=== PATIENT | male | born 1940 | race Hispanic/Latino ===

== ENCOUNTER 2017-04-05 11:15 | Inpatient (IN) | payer MEDICARE ==
[2017-04-05] MEDS ORDERED: NACL 0.9% 500 ML 500 ML IV SCH (12:00)
[2017-04-05 12:07] LABS: Basophils # (Auto) 0.1 K/mm3 (0.0-0.1); Basophils % (Auto) 0.8 % (0.0-1.8); Eosinophils # (Auto) 0.1 K/mm3 (0.0-0.4); Eosinophils % (Auto) 1.6 % (0.0-4.3); Hematocrit 38.1 % (35.5-45.6); Lymphocytes # (Auto) 1.4 K/mm3 (1.2-5.4); Lymphocytes % (Auto) 18.5 % (13.4-35.0); Mean Corpuscular HGB Conc 34 % (32-34); Mean Corpuscular Hemoglobin 32 pg (28-32); Mean Corpuscular Volume 93 fl (84-94); Monocytes # (Auto) 0.6 K/mm3 (0.0-0.8); Monocytes % (Auto) 7.8 % (0.0-7.3); Platelet Count 357 K/mm3 (140-440); Red Cell Distribution Width 14.6 % (13.2-15.2)
[2017-04-05 12:19] LABS: INR 1.1 (0.87-1.13); Partial Thromboplastin Time 36.2 Sec. (24.2-36.6)
[2017-04-05 12:25] LABS: BUN/Creatinine Ratio 24; Blood Urea Nitrogen 17 mg/dL (9-20); Calcium 8.9 mg/dL (8.4-10.2); Hemolysis Index 8
[2017-04-05] MEDS ORDERED: HEPARIN/NS 5000 UNIT/500ML(CATH LAB) 500 ML IR ONE (15:39)
[2017-04-05] MEDS ORDERED: VERSED ONE (15:39)
[2017-04-05] MEDS ORDERED: SUBLIMAZE ONE (15:39)
[2017-04-05] MEDS ORDERED: ANCEF/STERILE WATER 2 GM/20 ML 2 GM/20 ML SYRINGE IV ONE (15:40)
[2017-04-05] MEDS ORDERED: XYLOCAINE 2% INFILTRATI ONE (15:40)
[2017-04-05] MEDS ORDERED: ZOFRAN IV PRN ×2 (15:50→16:56)
[2017-04-05] MEDS ORDERED: DULCOLAX PR PRN ×2 (15:50→16:56)
[2017-04-05] MEDS ORDERED: TYLENOL PO PRN ×2 (15:50→16:56)
[2017-04-05] MEDS ORDERED: MILK OF MAGNESIA PO PRN ×2 (15:50→16:56)
[2017-04-05] MEDS ORDERED: PERCOCET 5/325 PO PRN (15:51)
--- NOTE | 2017-04-05 15:56 | History and Physical Report ---
History of Present Illness Date of examination: 04/05/17 Date of admission: 04/05/17 14:27 Chief complaint: CC Recurrent DVT's Infected Knee joint S/pIVC filter History of present illness: NOOKSACK: 76 y/o male being admitted as a direct admit for Septic Knee Joint(Infected Prosthetic) - for wash out/TKA tomorrow by Dr Gauthier.Patient has recurrent DVT 's for which he had IVC filter placed today by Dr Nguyen.Post IVC filter patient doing well.No fever chills etc.No Sob .No chest pain etc.Patient on Lifelong anticoagulation with Xarelto for time being. Past History Past Medical History: DVT (Recurrent), hyperlipidemia, other Past Surgical History: total knee replacement Social history: no significant social history, full code Family history: hypertension Medications and Allergies Allergies Allergy/AdvReac Type Severity Reaction Status Date / Time No Known Allergies Allergy Verified 04/04/17 16:39 Home Medications Medication Instructions Recorded Confirmed Last Taken Type Acetaminophen [Tylenol Arthritis] 1,000 mg PO DAILY 04/04/17 04/05/17 04/04/17 History Fenofibrate Nanocrystallized 160 mg PO DAILY 04/04/17 04/05/17 04/04/17 History [Fenofibrate] Glucosam/Ab-Msm1/C/[place]aughn/Bosw 1 each PO BID 04/04/17 04/05/17 04/04/17 History [Osteo Bi-Flex Caplet] HYDROcodone/APAP 5-325 [[place] 1 each PO Q6HR PRN 04/04/17 04/05/17 04/04/17 History 5/325] Rivaroxaban [Xarelto] 10 mg PO QDAY 04/04/17 04/05/17 04/03/17 History Sulfamethoxazole/Trimethoprim 1 each PO BID 04/04/17 04/05/17 04/04/17 History [Bactrim 400-80 mg Tablet] Tamsulosin [Flomax] 0.4 mg PO QDAY 04/04/17 04/05/17 04/04/17 History hydrOXYzine PAMOATE [Vistaril] 25 mg PO QHS 04/04/17 04/05/17 04/04/17 History traZODone [Desyrel] 50 mg PO QHS 04/04/17 04/05/17 04/04/17 History Active Meds: Active Medications Sodium Chloride (Nacl 0.9% 500 Ml) 500 mls @ 50 mls/hr IV DIRECT SALE[place] Review of Systems Constitutional: no weight loss, no weight gain, no fever, no chills, no sweats, no night sweats Ears, nose, mouth and throat: no dysphagia, no hoarseness, no sore throat, no swelling in mouth Cardiovascular: no chest pain, no orthopnea, no palpitations, no rapid/ irregular heart beat, no edema, no syncope, no lightheadedness, no shortness of breath Respiratory: no cough, no cough with sputum, no excessive sputum, no hemoptysis , no shortness of breath, no dyspnea on exertion Gastrointestinal: no abdominal pain, no nausea, no vomiting, no diarrhea, no constipation, no change in bowel habits, no hematemesis, no coffee ground emesis Genitourinary Male: no dysuria, no hematuria, no flank pain, no discharge, no urinary frequency, no urinary hesitancy, no nocturia, no incontinence, no erectile dysfunction, no genital pain Rectal: no pain Musculoskeletal: no neck stiffness, no neck pain, no shooting arm pain, no arm numbness/tingling, no low back pain Integumentary: no rash, no pruritis, no redness, no sores, no wounds, no jaundice Neurological: no seizures, no syncope Psychiatric: no anxiety, no memory loss, no change in sleep habits, no sleep disturbances, no insomnia Endocrine: no cold intolerance, no heat intolerance, no polyphagia Hematologic/Lymphatic: no easy bruising, no easy bleeding Allergic/Immunologic: no urticaria, no allergic rhinitis, no wheezing Exam - Constitutional Vitals: Temp Pulse Resp BP Pulse Ox 98.0 F 90 20 124/73 96 04/05/17 11:58 04/05/17 11:58 04/05/17 11:58 04/05/17 11:58 04/05/17 11:58 General appearance: Present: no acute distress, well-nourished - EENT Eyes: Present: PERRL ENT: hearing intact, clear oral mucosa - Neck Neck: Present: supple, normal ROM - Respiratory Respiratory effort: normal Respiratory: bilateral: CTA - Cardiovascular Heart Sounds: Present: S1 & S2. Absent: rub, click - Extremities Extremities: pulses symmetrical, No edema Peripheral Pulses: within normal limits - Abdominal General gastrointestinal: Present: soft, non-tender, non-distended, normal bowel sounds Male genitourinary: Present: normal - Integumentary Integumentary: Present: clear, warm, dry - Musculoskeletal Musculoskeletal: gait normal, strength equal bilaterally - Psychiatric Psychiatric: appropriate mood/affect, intact judgment & insight - Neurologic Neurologic: CNII-XII intact, moves all extremities Results - Labs CBC & Chem 7: 04/05/17 11:57 04/05/17 11:57 Labs: Laboratory Last Values WBC 7.3 K/mm3 (4.5-11.0) 04/05/17 11:57 RBC 4.10 M/mm3 (3.65-5.03) 04/05/17 11:57 Hgb 13.0 gm/dl (11.8-15.2) 04/05/17 11:57 Hct 38.1 % (35.5-45.6) 04/05/17 11:57 MCV 93 fl (84-94) 04/05/17 11:57 MCH 32 pg (28-32) 04/05/17 11:57 MCHC 34 % (32-34) 04/05/17 11:57 RDW 14.6 % (13.2-15.2) 04/05/17 11:57 Plt Count 357 K/mm3 (140-440) 04/05/17 11:57 Lymph % (Auto) 18.5 % (13.4-35.0) 04/05/17 11:57 [place] % (Auto) 7.8 % (0.0-7.3) H 04/05/17 11:57 Eos % (Auto) 1.6 % (0.0-4.3) 04/05/17 11:57 Baso % (Auto) 0.8 % (0.0-1.8) 04/05/17 11:57 Lymph # 1.4 K/mm3 (1.2-5.4) 04/05/17 11:57 [place] # 0.6 K/mm3 (0.0-0.8) 04/05/17 11:57 Eos # 0.1 K/mm3 (0.0-0.4) 04/05/17 11:57 Baso # 0.1 K/mm3 (0.0-0.1) 04/05/17 11:57 Seg Neutrophils % 71.3 % (40.0-70.0) H 04/05/17 11:57 Seg Neutrophils # 5.2 K/mm3 (1.8-7.7) 04/05/17 11:57 PT 14.8 Sec. (12.2-14.9) 04/05/17 11:57 INR 1.10 (0.87-1.13) 04/05/17 11:57 APTT 36.2 Sec. (24.2-36.6) 04/05/17 11:57 Sodium 137 mmol/L (137-145) 04/05/17 11:57 Potassium 4.5 mmol/L (3.6-5.0) 04/05/17 11:57 Chloride 99.5 mmol/L (98-107) 04/05/17 11:57 Carbon Dioxide 23 mmol/L (22-30) 04/05/17 11:57 Anion Gap 19 mmol/L 04/05/17 11:57 BUN 17 mg/dL (9-20) 04/05/17 11:57 Creatinine 0.7 mg/dL (0.8-1.5) L 04/05/17 11:57 Estimated GFR > 60 ml/min 04/05/17 11:57 BUN/Creatinine Ratio 24 % 04/05/17 11:57 Glucose 100 mg/dL (75-100) 04/05/17 11:57 Calcium 8.9 mg/dL (8.4-10.2) 04/05/17 11:57 Assessment and Plan Advance Directives: Yes (Full code) VTE prophylaxis?: Chemical Plan of care discussed with patient/family: Yes - Patient Problems (1) Septic arthritis Current Visit: Yes Status: Acute Qualifiers: Septic arthritis location: knee Laterality: unspecified laterality Plan to address problem: Iv Vancomycin and IV Unasyn initiated (2) HLD (hyperlipidemia) Current Visit: Yes Status: Chronic Qualifiers: Hyperlipidemia type: mixed hyperlipidemia Qualified Code(s): E78.2 - Mixed hyperlipidemia Plan to address problem: Cont Fenofibrate (3) Anticoagulant long-term use Current Visit: Yes Status: Chronic Plan to address problem: On Xareltio which we will hold till 3 days post surgery (4) BPH (benign prostatic hyperplasia) Current Visit: Yes Status: Chronic Qualifiers: Lower urinary tract symptom presence: symptoms present Lower urinary tract symptom detail: urinary hesitancy Qualified Code(s): N40.1 - Benign prostatic hyperplasia with lower urinary tract symptoms; R39.11 - Hesitancy of micturition ; R39.11 - Hesitancy of micturition Plan to address problem: Cont Tamsulosin (5) DVT, lower extremity, recurrent Current Visit: Yes Status: Chronic Qualifiers: Laterality: bilateral Qualified Code(s): I82.403 - Acute embolism and thrombosis of unspecified deep veins of lower extremity, bilateral Plan to address problem: Had IVC filter (6) DVT prophylaxis Current Visit: Yes Status: Acute Plan to address problem: Only SCD's for now.Resume Xarelto after Discharge.Patient has IVC filter now
[2017-04-05] MEDS ORDERED: NACL 0.45% 1000 ML 1,000 ML IV SCH (16:00)
--- NOTE | 2017-04-05 16:29 | Operative Report ---
Operative Report Operative Report: Operative note: Date: 04/05/2017 Preoperative diagnosis: Right leg DVT Postoperative diagnosis: Same. Operation: Ultrasound-guided access of right common femoral vein Venogram Placement of IVC filter Surgeon: Denita Nguyen. Asst.: None Anesthesia: Moderate sedation EBL: None Findings: Patent IVC without evidence of clot Indications: A 76-year-old gentleman with multiple previous DVTs and recent in the right lower extremity diagnosed in February came for IVC filter placement in preparation for infected knee surgery. Patient would be off anticoagulation which may seem at risk of propagation of DVT and PE. Patient was explained all risks, benefits and alternatives of placement of IVC filter. Patient chose to proceed and signed informed consent. Operative details: Patient was brought to the labor/excavator and placed in supine position. His right groin was prepped and draped in sterile fashion. Timeout was performed. Right common femoral vein was accessed under continuous ultrasound with micropuncture needle and that was exchanged to micropuncture sheath over micropuncture wire. Bentson wire was inserted and advanced into proximal IVC. Access sheath from [place] femoral IVC filter was inserted and positioned at second lumbar vertebra. Introducer was removed and venogram was performed visualizing location of renal veins. They were at top of L1. IVC filter was placed with the tip just below renal veins. Postprocedure venogram showed excellent positioning of IVC filter. Sheath was removed and pressure applied. Sterile dressing was placed. Patient tolerated the procedure well and was transferred to recovery room in stable condition.
[2017-04-05] MEDS ORDERED: AMBIEN PO PRN (16:56)
[2017-04-05] MEDS ORDERED: VANCOMYCIN PHARMACY TO DOSE IV SCH (17:00)
[2017-04-05] MEDS ORDERED: VANCOMYCIN 1,750 MG in NACL 0.9% 500 ML 500 ML IV ONE (18:00)
[2017-04-05 19:13] LABS: Basophils # (Auto) 0.1 K/mm3 (0.0-0.1); Basophils % (Auto) 0.8 % (0.0-1.8); Eosinophils # (Auto) 0.1 K/mm3 (0.0-0.4); Eosinophils % (Auto) 1.7 % (0.0-4.3); Hemoglobin 12.6 gm/dl (11.8-15.2); Lymphocytes # (Auto) 1.4 K/mm3 (1.2-5.4); Lymphocytes % (Auto) 23.3 % (13.4-35.0); Mean Corpuscular HGB Conc 34 % (32-34); Mean Corpuscular Hemoglobin 32 pg (28-32); Mean Corpuscular Volume 95 fl (84-94); Monocytes # (Auto) 0.5 K/mm3 (0.0-0.8); Monocytes % (Auto) 8.7 % (0.0-7.3); Platelet Count 340 K/mm3 (140-440); Red Blood Count 3.91 M/mm3 (3.65-5.03); Red Cell Distribution Width 14.3 % (13.2-15.2)
[2017-04-05 19:38] LABS: Alanine Aminotransferase 7 units/L (7-56); Albumin 3.5 g/dL (3.9-5); BUN/Creatinine Ratio 23; Blood Urea Nitrogen 16 mg/dL (9-20); Hemolysis Index 0
[2017-04-05] MEDS: PEPCID PO SCH (21:14)
[2017-04-05] MEDS: UNASYN/NS 3 GM/100 ML 3 GM/100 ML BAG IV SCH (21:14)
[2017-04-06] MEDS: MORPHINE IV PRN ×4 (01:39→22:02)
[2017-04-06] MEDS: UNASYN/NS 3 GM/100 ML 3 GM/100 ML BAG IV SCH ×4 (04:29→20:15)
[2017-04-06 04:58] LABS: Basophils % (Auto) 0.6 % (0.0-1.8); Eosinophils # (Auto) 0.1 K/mm3 (0.0-0.4); Eosinophils % (Auto) 1.8 % (0.0-4.3); Hematocrit 37.3 % (35.5-45.6); Lymphocytes # (Auto) 1.3 K/mm3 (1.2-5.4); Mean Corpuscular HGB Conc 32 % (32-34); Mean Corpuscular Hemoglobin 30 pg (28-32); Mean Corpuscular Volume 94 fl (84-94); Monocytes # (Auto) 0.7 K/mm3 (0.0-0.8); Monocytes % (Auto) 9.3 % (0.0-7.3); Platelet Count 344 K/mm3 (140-440); Red Blood Count 3.96 M/mm3 (3.65-5.03); Red Cell Distribution Width 14.5 % (13.2-15.2)
[2017-04-06 05:09] LABS: BUN/Creatinine Ratio 23; Blood Urea Nitrogen 16 mg/dL (9-20); Calcium 8.4 mg/dL (8.4-10.2); Hemolysis Index 9
[2017-04-06] MEDS: VANCOMYCIN 1,250 MG in NACL 0.9% 250ML 250 ML IV SCH ×2 (05:19→17:15)
--- NOTE | 2017-04-06 07:47 | Progress Note ---
Assessment and Plan Assessment and plan: Patient is a 76 y/o male being admitted as a direct admit for Septic Knee Joint( Infected Prosthetic) - for wash out/TKA today by Dr Gauthier.Patient has recurrent DVT's Requring placement of IVC filter on admission by Dr Nguyen. Post IVC filter patient doing well. No fever chills etc. No Sob. No chest pain etc. Patient on Lifelong anticoagulation with Xarelto for time being. (1) Suspected Septic arthritis * Status post IV washout today * Continue IV abx with Vancomycin and IV Unasyn * consult ID for abx choice and duration * Follow cultures as they become available (2) HLD (hyperlipidemia) * Cont Fenofibrate (3) Anticoagulant long-term use * On Xareltio which we will hold till 3 days post surgery * Now S/P IVC filter placement (4) BPH (benign prostatic hyperplasia) * Cont Tamsulosin (5) DVT, lower extremity, recurrent * Had IVC filter (6) DVT prophylaxis * Only SCD's for now.Resume Xarelto after Discharge.Patient has IVC filter now Plan of care discussed with the patient in detail History Interval history: Patient seen and examined in no acute distress resting comfortably post procedure. Pain appears to be controlled. Denies any nausea vomiting or diarrhea. Hospitalist Physical - Physical exam Narrative exam: VITAL SIGNS: Reviewed. GENERAL: The patient appeared well nourished and normally developed. Vital signs as documented. HEAD: No signs of head trauma. EYES: Pupils are equal. Extraocular motions intact. EARS: Hearing grossly intact. MOUTH: Oropharynx is normal. NECK: No adenopathy, no JVD. CHEST: Chest with clear breath sounds bilaterally. No wheezes, rales, or rhonchi. CARDIAC: Regular rate and rhythm. S1 and S2, without murmurs, gallops, or rubs. VASCULAR: No Edema. Peripheral pulses normal and equal in all extremities. ABDOMEN: Soft, without detectable tenderness. No sign of distention. No rebound or guarding, and no masses palpated. Bowel Sounds normal. MUSCULOSKELETAL: Good range of motion of all major joints. Except right lower extremity with knee immobilizer in place. Wound is not visualized by me. Extremities without clubbing, cyanosis or edema. NEUROLOGIC EXAM: Alert and oriented x 3. No focal sensory or strength deficits. Speech normal. Follows commands. PSYCHIATRIC: Mood normal. SKIN: No rash or lesions. - Constitutional Vitals: Temp Pulse Resp BP Pulse Ox 97.7 F 87 20 117/65 95 04/06/17 03:51 04/06/17 03:51 04/06/17 03:51 04/06/17 03:51 04/06/17 03:51 General appearance: Present: no acute distress, well-nourished Results - Labs CBC & Chem 7: 04/07/17 04:12 04/07/17 04:12 Labs: Laboratory Last Values WBC 7.0 K/mm3 (4.5-11.0) 04/06/17 04:26 RBC 3.96 M/mm3 (3.65-5.03) 04/06/17 04:26 Hgb 12.0 gm/dl (11.8-15.2) 04/06/17 04:26 Hct 37.3 % (35.5-45.6) 04/06/17 04:26 MCV 94 fl (84-94) 04/06/17 04:26 MCH 30 pg (28-32) 04/06/17 04:26 MCHC 32 % (32-34) 04/06/17 04:26 RDW 14.5 % (13.2-15.2) 04/06/17 04:26 Plt Count 344 K/mm3 (140-440) 04/06/17 04:26 Lymph % (Auto) 18.0 % (13.4-35.0) 04/06/17 04:26 [place] % (Auto) 9.3 % (0.0-7.3) H 04/06/17 04:26 Eos % (Auto) 1.8 % (0.0-4.3) 04/06/17 04:26 Baso % (Auto) 0.6 % (0.0-1.8) 04/06/17 04:26 Lymph # 1.3 K/mm3 (1.2-5.4) 04/06/17 04:26 [place] # 0.7 K/mm3 (0.0-0.8) 04/06/17 04:26 Eos # 0.1 K/mm3 (0.0-0.4) 04/06/17 04:26 Baso # 0.0 K/mm3 (0.0-0.1) 04/06/17 04:26 Seg Neutrophils % 70.3 % (40.0-70.0) H 04/06/17 04:26 Seg Neutrophils # 4.9 K/mm3 (1.8-7.7) 04/06/17 04:26 PT 14.8 Sec. (12.2-14.9) 04/05/17 11:57 INR 1.10 (0.87-1.13) 04/05/17 11:57 APTT 36.2 Sec. (24.2-36.6) 04/05/17 11:57 Sodium 136 mmol/L (137-145) L 04/06/17 04:26 Potassium 4.2 mmol/L (3.6-5.0) 04/06/17 04:26 Chloride 98.8 mmol/L (98-107) 04/06/17 04:26 Carbon Dioxide 25 mmol/L (22-30) 04/06/17 04:26 Anion Gap 16 mmol/L 04/06/17 04:26 BUN 16 mg/dL (9-20) 04/06/17 04:26 Creatinine 0.7 mg/dL (0.8-1.5) L 04/06/17 04:26 Estimated GFR > 60 ml/min 04/06/17 04:26 BUN/Creatinine Ratio 23 % 04/06/17 04:26 Glucose 85 mg/dL (75-100) 04/06/17 04:26 POC Glucose 78 (70-105) 04/06/17 05:49 Hemoglobin A1c 5.6 % (4-6) 04/05/17 18:28 Calcium 8.4 mg/dL (8.4-10.2) 04/06/17 04:26 Total Bilirubin 0.40 mg/dL (0.1-1.2) 04/05/17 18:28 AST 11 units/L (5-40) 04/05/17 18:28 ALT 7 units/L (7-56) 04/05/17 18:28 Alkaline Phosphatase 49 units/L (35-129) 04/05/17 18:28 Total Protein 6.6 g/dL (6.3-8.2) 04/05/17 18:28 Albumin 3.5 g/dL (3.9-5) L 04/05/17 18:28 Albumin/Globulin Ratio 1.1 % 04/05/17 18:28
[2017-04-06] MEDS ORDERED: NACL 0.9% 500 ML 500 ML IV SCH (09:00)
[2017-04-06] MEDS ORDERED: ANCEF/STERILE WATER 2 GM/20 ML IV NR (09:00)
--- NOTE | 2017-04-06 09:05 | Anesthesia Day of Surgery ---
Anesthesia Day of Surgery - Day of Surgery Patient Examined: Yes Patient H&P Reviewed: Yes Patient is NPO: Yes
--- NOTE | 2017-04-06 09:06 | Anesthesia Consultation ---
Anesthesia Consult and Med Hx Date of service: 04/06/17 - Airway Anesthetic Teeth Evaluation: Dentures (upper) ROM Head & Neck: Adequate Mental/Hyoid Distance: Adequate Mallampati Class: Class II Intubation Access Assessment: Probably Good - Pulmonary Exam CTA: Yes - Cardiac Exam Cardiac Exam: RRR - Pre-Operative Health Status ASA Pre-Surgery Classification: ASA2 Proposed Anesthetic Plan: General - Pulmonary Hx Smoking: No Hx Asthma: No COPD: No Hx Pneumonia: No Hx Sleep Apnea: No (MANJIT PRE SCREEN LOW RISK) - Cardiovascular System Hx Hypertension: No - Central Nervous System Hx Psychiatric Problems: No - Endocrine Hx End Stage Renal Disease: No - Hematic Hx Anemia: No - Other Systems Hx Cancer: No - Additional Comments Anesthesia Medical History Comments: h/o DVT
[2017-04-06] MEDS ORDERED: NACL 0.9% 1000 ML 1,000 ML ONE (09:17)
[2017-04-06] MEDS ORDERED: MARCAINE 0.25% INFILTRATI ONE (10:16)
[2017-04-06] MEDS ORDERED: POLYMYXIN B SULFATE IV ONE ×2 (10:16→11:45)
[2017-04-06] MEDS ORDERED: TORADOL ONE (10:16)
[2017-04-06] MEDS ORDERED: BACITRACIN ONE (10:17)
[2017-04-06] MEDS ORDERED: MORPHINE ONE (10:17)
[2017-04-06] MEDS ORDERED: NACL 0.9% 0 ML ONE (10:19)
[2017-04-06] MEDS: PEPCID PO SCH ×2 (11:19→22:02)
[2017-04-06] MEDS ORDERED: NACL 0.9% IV ONE (11:45)
[2017-04-06] MEDS ORDERED: BACITRACIN IR ONE (11:45)
[2017-04-06] MEDS ORDERED: NACL 0.9% IR ONE ×2 (11:45)
--- NOTE | 2017-04-06 12:43 | Progress Note ---
Subjective Date of service: 04/06/17 Interval history: patient had TKA 9 years ago approx and recently had a GI surgery after which he had increase pain and swelling in the knee. Knee aspirate has grown Streptococcus Agalacte bug which is sensitive to vanop, linezolid, levoflaxacin. and ampicillin. ID consulted. continue medical management consulted Vascular team given his history of DVT Objective Vital signs: Vital Signs - 12hr 04/06/17 04/06/17 04/06/17 01:39 03:51 09:24 Temperature 97.7 F 98.7 F Pulse Rate 87 83 Respiratory 18 20 18 Rate Blood Pressure 117/65 119/85 O2 Sat by Pulse 95 99 Oximetry 04/06/17 09:27 Temperature 98.7 F Pulse Rate 83 Respiratory 18 Rate Blood Pressure 119/85 O2 Sat by Pulse 99 Oximetry - Labs CBC & BMP: 04/06/17 04:26 04/06/17 04:26 Labs: Abnormal lab results 04/05/17 04/05/17 04/06/17 Range/Units 18:28 18:28 04:26 MCV 95 H (84-94) fl [place] % (Auto) 8.7 H 9.3 H (0.0-7.3) % Seg Neutrophils % 70.3 H (40.0-70.0) % Sodium (137-145) mmol/L Potassium 5.1 H (3.6-5.0) mmol/L Creatinine 0.7 L (0.8-1.5) mg/dL C-Reactive Protein (0.00-1.30) mg/dL Albumin 3.5 L (3.9-5) g/dL 04/06/17 04/06/17 Range/Units 04:26 04:26 MCV (84-94) fl [place] % (Auto) (0.0-7.3) % Seg Neutrophils % (40.0-70.0) % Sodium 136 L (137-145) mmol/L Potassium (3.6-5.0) mmol/L Creatinine 0.7 L (0.8-1.5) mg/dL C-Reactive Protein 2.60 H (0.00-1.30) mg/dL Albumin (3.9-5) g/dL
[2017-04-06] MEDS ORDERED: MILK OF MAGNESIA PO PRN (12:44)
[2017-04-06] MEDS ORDERED: PHENERGAN PR PRN (12:44)
[2017-04-06] MEDS ORDERED: ZOFRAN IV PRN (12:44)
[2017-04-06] MEDS ORDERED: SODIUM CHLORIDE FLUSH SYRINGE 10 ML IV NR (13:00)
[2017-04-06] MEDS ORDERED: DILAUDID ONE (13:18)
--- NOTE | 2017-04-06 14:01 | Post Anesthesia Evaluation ---
- Post Anesthesia Evaluation Patient Participated: Yes Airway Patent: Yes Stable Respiratory Function: Yes Temp > 96.8F: Yes Pain Manageable: Yes Adequeate Hydration: Yes Anesthesia Complications: No
--- NOTE | 2017-04-06 14:22 | Consultation ---
History of Present Illness - Reason for Consult Consult date: 04/06/17 TKR infection Requesting physician: PATI PATTON - History of Present Illness 76 years old male with history of DVT (Recurrent), hyperlipidemia and right total knee replacement in 2008; direct admitted on for right TKR infection. Patient reports he has had chronic knee pain and edema which became worse last couple of months after he had cholecystectomy in Feb 2017. Patient was evaluated by ortho and knee aspirate has grown Streptococcus agalactiae. Patient underwent IVC filter placement yesterday and just came out of the OR for right total knee polyethylene exchange. Denies any recent trauma, fever, chills, N/V/D. Upon admission, initial temperature was 98, heart rate 90, respiration 20, blood pressure 124/73. Initial white count 7.8. Hemoglobin 13. Creatinine 0.7. Microbiology: Knee aspiration: Streptococcus agalactiae Current Antimicrobials: unasyn vanco Previous Antimicrobials: Past History Past Medical History: DVT (Recurrent), hyperlipidemia, other Past Surgical History: total knee replacement Social history: no significant social history, full code Family history: hypertension Medications and Allergies Allergies Allergy/AdvReac Type Severity Reaction Status Date / Time No Known Allergies Allergy Verified 04/04/17 16:39 Home Medications Medication Instructions Recorded Confirmed Last Taken Type Acetaminophen [Tylenol Arthritis] 1,000 mg PO DAILY 04/04/17 04/05/17 04/04/17 History Fenofibrate Nanocrystallized 160 mg PO DAILY 04/04/17 04/05/17 04/04/17 History [Fenofibrate] Glucosam/Ab-Msm1/C/[place]/Bosw 1 each PO BID 04/04/17 04/05/17 04/04/17 History [Osteo Bi-Flex Caplet] HYDROcodone/APAP 5-325 [[employer] 1 each PO Q6HR PRN 04/04/17 04/05/17 04/04/17 History 5/325] Rivaroxaban [Xarelto] 10 mg PO QDAY 04/04/17 04/05/17 04/03/17 History Sulfamethoxazole/Trimethoprim 1 each PO BID 04/04/17 04/05/17 04/04/17 History [Bactrim 400-80 mg Tablet] Tamsulosin [Flomax] 0.4 mg PO QDAY 04/04/17 04/05/17 04/04/17 History hydrOXYzine PAMOATE [Vistaril] 25 mg PO QHS 04/04/17 04/05/17 04/04/17 History traZODone [Desyrel] 50 mg PO QHS 04/04/17 04/05/17 04/04/17 History Active Meds: Active Medications Acetaminophen (Tylenol) 650 mg PO Q4H PRN PRN Reason: Pain MILD(1-3)/Fever >100.5/RILEY Apixaban (Eliquis) 5 mg PO Q12HR [place] PRN Reason: Protocol Bisacodyl (Dulcolax) 10 mg [place] QDAY PRN PRN Reason: Constipation unrelieved by MOM Cefazolin Sodium (Ancef/Sterile Water 2 Gm/20 Ml) 2 gm IV PREOP NR Stop: 04/06/17 21:00 Famotidine (Pepcid) 20 mg PO BID [facility] Last Admin: 04/06/17 11:19 Dose: Not Given Ampicillin Sodium/Sulbactam Sodium (Unasyn/Ns 3 Gm/100 Ml) 3 gm in 100 mls @ 100 mls/hr IV Q6H [facility]1983 PRN Reason: Protocol Last Admin: 04/06/17 11:18 Dose: Not Given Vancomycin HCl 1,250 mg/ (Sodium Chloride) 262.5 mls @ 166.667 mls/hr IV Q12H [facility] Last Admin: 04/06/17 05:19 Dose: 166.667 mls/hr Sodium Chloride (Nacl 0.9% 500 Ml) 500 mls @ 50 mls/hr IV DIRECT [place] Magnesium Hydroxide (Milk Of Magnesia) 30 ml PO Q4H PRN PRN Reason: Constipation Magnesium Hydroxide (Milk Of Magnesia) 30 ml PO Q4H PRN PRN Reason: Constipation Morphine Sulfate (Morphine) 2 mg IV Q4H PRN PRN Reason: Pain, Moderate (4-6) Last Admin: 04/06/17 01:39 Dose: 2 mg Morphine Sulfate (Morphine) 4 mg IV Q4H PRN PRN Reason: Pain , Severe (7-10) Morphine Sulfate (Morphine) 2 mg IV Q10MIN PRN PRN Reason: Pain, Moderate (4-6) Ondansetron HCl (Zofran) 4 mg IV Q8H PRN PRN Reason: N/V unrelieved by Hermelinda Ondansetron HCl (Zofran) 4 mg IV Q8H PRN PRN Reason: Nausea And Vomiting Oxycodone/Acetaminophen (Percocet 5/325) 1 tab PO Q6H PRN PRN Reason: Pain, Moderate (4-6) Promethazine HCl (Phenergan) 25 mg [place] Q6H PRN PRN Reason: Nausea And Vomiting Sodium Chloride (Sodium Chloride Flush Syringe 10 Ml) 10 ml IV PRN NR Stop: 04/08/17 12:59 Vancomycin HCl (Vancomycin Pharmacy To Dose) 1 each IV PKCONSULT SALE[place] PRN Reason: Protocol Zolpidem Tartrate (Ambien) 5 mg PO QHS PRN PRN Reason: Insomnia Review of Systems All systems: negative (as per HPI rest neg) Physical Examination - Physical Exam Narrative exam: General appearance: Alert in NAD, conversant Eyes: anicteric sclerae, moist conjunctivae; no lid-lag; PERRLA HENT: Atraumatic; oropharynx clear Neck: Trachea midline; supple, no thyromegaly or lymphadenopathy Lungs: CTA CV: RRR Abdomen: Soft, non-tender Extremities: right knee with surgical dressings Skin: Normal temperature, turgor and texture; no rash, ulcers or subcutaneous nodules Psych: Appropriate affect, alert and oriented to person, place and time. Neuro: alert and oriented x 3. Moving all extermities Lines: No CVL / PICC - Constitutional Vitals: Vital Signs Temp Pulse Resp BP Pulse Ox 98.7 F 83 18 119/85 99 04/06/17 09:27 04/06/17 09:27 04/06/17 09:27 04/06/17 09:27 04/06/17 09:27 Temperature -Last 24 Hours Temperature 98.7 F Temperature 98.7 F Temperature 97.7 F Temperature 98.2 F Temperature 98.5 F Temperature 98.0 F Results - Labs CBC & Chem 7: 04/06/17 04:26 04/06/17 04:26 Labs: Abnormal lab results 04/05/17 04/05/17 04/06/17 Range/Units 18:28 18:28 04:26 MCV 95 H (84-94) fl [place] % (Auto) 8.7 H 9.3 H (0.0-7.3) % Seg Neutrophils % 70.3 H (40.0-70.0) % Sodium (137-145) mmol/L Potassium 5.1 H (3.6-5.0) mmol/L Creatinine 0.7 L (0.8-1.5) mg/dL C-Reactive Protein (0.00-1.30) mg/dL Albumin 3.5 L (3.9-5) g/dL 04/06/17 04/06/17 Range/Units 04:26 04:26 MCV (84-94) fl [place] % (Auto) (0.0-7.3) % Seg Neutrophils % (40.0-70.0) % Sodium 136 L (137-145) mmol/L Potassium (3.6-5.0) mmol/L Creatinine 0.7 L (0.8-1.5) mg/dL C-Reactive Protein 2.60 H (0.00-1.30) mg/dL Albumin (3.9-5) g/dL Assessment and Plan Assessment: 1) Right total knee replacement infection: -Initial right total knee replacement in 2008 -knee aspirate has grown Streptococcus agalactiae. -S/P right total knee polyethylene exchange on 04/06. 2)History of DVT (Recurrent) Plan: -follow-up OR cultures -stop vancomycin and unasyn -place a PICC line -start ceftriaxone -upon discharge will do ceftriaxone 2 g IV q day total 6 weeks from 04/06/17 until 05/17/17 -check CRP I will be off until Apr 12, but available over the phone, please call me for questions. Thank you Dr Patton for your consultation, will follow up with you. Agnes Evans MD Infectious Diseases Specialist [facility] M [phone] O [phone]
[2017-04-06 15:23] LABS: Total Cells Counted 100 /mm3
[2017-04-06] MEDS: ELIQUIS PO SCH (22:02)
[2017-04-07 04:42] LABS: Hematocrit 34.3 % (35.5-45.6); Hemoglobin 11.7 gm/dl (11.8-15.2)
[2017-04-07 04:54] LABS: INR 1.16 (0.87-1.13)
[2017-04-07 05:00] LABS: BUN/Creatinine Ratio 20; Blood Urea Nitrogen 12 mg/dL (9-20); Calcium 7.9 mg/dL (8.4-10.2); Hemolysis Index 8
[2017-04-07] MEDS: UNASYN/NS 3 GM/100 ML 3 GM/100 ML BAG IV SCH ×3 (05:37→15:15)
[2017-04-07] MEDS: VANCOMYCIN 1,250 MG in NACL 0.9% 250ML 250 ML IV SCH ×2 (05:38→17:20)
[2017-04-07] MEDS: MORPHINE IV PRN (05:43)
[2017-04-07] MEDS ORDERED: NORCO 5/325 PO PRN (09:16)
--- NOTE | 2017-04-07 09:26 | XRay Report ---
AP CHEST: HISTORY: Right arm PICC placement AP view of the chest demonstrates a normal mediastinal and cardiac contour with clear lungs and normal bony and soft tissue structures. The right arm PICC appears to terminate in the lower SVC. IMPRESSION: Adequate right arm PICC placement. No acute process in the chest.
[2017-04-07] MEDS: ELIQUIS PO SCH ×2 (10:11→23:14)
[2017-04-07] MEDS: FLOMAX PO SCH (10:13)
[2017-04-07] MEDS: PEPCID PO SCH ×2 (10:13→23:14)
[2017-04-07] MEDS: TRICOR PO SCH (10:32)
--- NOTE | 2017-04-07 13:17 | Progress Note ---
Subjective Date of service: 04/07/17 Interval history: patient doin well, no complaints dressing dry calf soft NT id and vascular team on board pain under control Objective Vital signs: Vital Signs - 12hr 04/07/17 04/07/17 04/07/17 03:55 04:21 07:24 Temperature 98.9 F 98.1 F Pulse Rate 93 H 92 H Respiratory 20 18 Rate Blood Pressure 134/73 135/75 O2 Sat by Pulse 97 95 Oximetry - Labs CBC & BMP: 04/07/17 04:12 04/07/17 04:12 Labs: Abnormal lab results 04/06/17 04/07/17 04/07/17 Range/Units 15:39 04:12 04:12 Hgb 11.7 L (11.8-15.2) gm/dl Hct 34.3 L (35.5-45.6) % PT 15.4 H (12.2-14.9) Sec. INR 1.16 H (0.87-1.13) Sodium (137-145) mmol/L Chloride (98-107) mmol/L Creatinine (0.8-1.5) mg/dL Glucose (75-100) mg/dL Calcium (8.4-10.2) mg/dL C-Reactive Protein 3.20 H (0.00-1.30) mg/dL 04/07/17 04/07/17 Range/Units 04:12 04:12 Hgb (11.8-15.2) gm/dl Hct (35.5-45.6) % PT (12.2-14.9) Sec. INR (0.87-1.13) Sodium 135 L (137-145) mmol/L Chloride 97.6 L (98-107) mmol/L Creatinine 0.6 L (0.8-1.5) mg/dL Glucose 131 H (75-100) mg/dL Calcium 7.9 L (8.4-10.2) mg/dL C-Reactive Protein 5.50 H (0.00-1.30) mg/dL
--- NOTE | 2017-04-07 13:45 | Progress Note ---
Assessment and Plan Assessment and plan: Patient is a 76 y/o male being admitted as a direct admit for Septic Knee Joint( Infected Prosthetic) - for wash out/TKA today by Dr Gauthier.Patient has recurrent DVT's Requring placement of IVC filter on admission by Dr Nguyen. Post IVC filter patient doing well. No fever chills etc. No Sob. No chest pain etc. Patient on Lifelong anticoagulation with Xarelto for time being. (1) Suspected Septic arthritis * Status post IV washout today * Vancomycin and Zosyn discontinued patient will be treated with ceftriaxone for 6 weeks. Client has been placed. * Follow cultures as they become available * Initial total knee replacement was done in 2008. The aspirate had grown Streptococcus agalactiae (2) HLD (hyperlipidemia) * Cont Fenofibrate (3) Anticoagulant long-term use * On Xareltio which we will hold till 3 days post surgery * Now S/P IVC filter placement (4) BPH (benign prostatic hyperplasia) * Cont Tamsulosin (5) DVT, lower extremity, recurrent * Had IVC filter (6) anemia Aspect that. We'll monitor no evidence of overt bleeding. (7) DVT prophylaxis * Only SCD's for now.Resume Xarelto after Discharge.Patient has IVC filter now * Plan of care discussed with the patient in detail History Interval history: Patient seen and examined in no acute distress resting comfortably post procedure. Denies any nausea vomiting or diarrhea. Hospitalist Physical - Physical exam Narrative exam: VITAL SIGNS: Reviewed. GENERAL: The patient appeared well nourished and normally developed. Vital signs as documented. HEAD: No signs of head trauma. EYES: Pupils are equal. Extraocular motions intact. EARS: Hearing grossly intact. MOUTH: Oropharynx is normal. NECK: No adenopathy, no JVD. CHEST: Chest with clear breath sounds bilaterally. No wheezes, rales, or rhonchi. CARDIAC: Regular rate and rhythm. S1 and S2, without murmurs, gallops, or rubs. VASCULAR: No Edema. Peripheral pulses normal and equal in all extremities. ABDOMEN: Soft, without detectable tenderness. No sign of distention. No rebound or guarding, and no masses palpated. Bowel Sounds normal. MUSCULOSKELETAL: Good range of motion of all major joints. Except right lower extremity with knee immobilizer in place. Wound is not visualized by me. Extremities without clubbing, cyanosis or edema. NEUROLOGIC EXAM: Alert and oriented x 3. No focal sensory or strength deficits. Speech normal. Follows commands. PSYCHIATRIC: Mood normal. SKIN: No rash or lesions. - Constitutional Vitals: Temp Pulse Resp BP Pulse Ox 98.1 F 92 H 18 135/75 95 04/07/17 07:24 04/07/17 07:24 04/07/17 07:24 04/07/17 07:24 04/07/17 07:24 General appearance: Present: no acute distress, well-nourished Results - Labs CBC & Chem 7: 04/07/17 04:12 04/07/17 04:12 Labs: Laboratory Last Values WBC 7.0 K/mm3 (4.5-11.0) 04/06/17 04:26 RBC 3.96 M/mm3 (3.65-5.03) 04/06/17 04:26 Hgb 11.7 gm/dl (11.8-15.2) L 04/07/17 04:12 Hct 34.3 % (35.5-45.6) L 04/07/17 04:12 MCV 94 fl (84-94) 04/06/17 04:26 MCH 30 pg (28-32) 04/06/17 04:26 MCHC 32 % (32-34) 04/06/17 04:26 RDW 14.5 % (13.2-15.2) 04/06/17 04:26 Plt Count 344 K/mm3 (140-440) 04/06/17 04:26 Lymph % (Auto) 18.0 % (13.4-35.0) 04/06/17 04:26 [place] % (Auto) 9.3 % (0.0-7.3) H 04/06/17 04:26 Eos % (Auto) 1.8 % (0.0-4.3) 04/06/17 04:26 Baso % (Auto) 0.6 % (0.0-1.8) 04/06/17 04:26 Lymph # 1.3 K/mm3 (1.2-5.4) 04/06/17 04:26 [place] # 0.7 K/mm3 (0.0-0.8) 04/06/17 04:26 Eos # 0.1 K/mm3 (0.0-0.4) 04/06/17 04:26 Baso # 0.0 K/mm3 (0.0-0.1) 04/06/17 04:26 Seg Neutrophils % 70.3 % (40.0-70.0) H 04/06/17 04:26 Seg Neutrophils # 4.9 K/mm3 (1.8-7.7) 04/06/17 04:26 PT 15.4 Sec. (12.2-14.9) H 04/07/17 04:12 INR 1.16 (0.87-1.13) H 04/07/17 04:12 APTT 36.2 Sec. (24.2-36.6) 04/05/17 11:57 Sodium 135 mmol/L (137-145) L 04/07/17 04:12 Potassium 4.0 mmol/L (3.6-5.0) 04/07/17 04:12 Chloride 97.6 mmol/L (98-107) L 04/07/17 04:12 Carbon Dioxide 22 mmol/L (22-30) 04/07/17 04:12 Anion Gap 19 mmol/L 04/07/17 04:12 BUN 12 mg/dL (9-20) 04/07/17 04:12 Creatinine 0.6 mg/dL (0.8-1.5) L 04/07/17 04:12 Estimated GFR > 60 ml/min 04/07/17 04:12 BUN/Creatinine Ratio 20 % 04/07/17 04:12 Glucose 131 mg/dL (75-100) H 04/07/17 04:12 POC Glucose 78 (70-105) 04/06/17 05:49 Hemoglobin A1c 5.6 % (4-6) 04/05/17 18:28 Calcium 7.9 mg/dL (8.4-10.2) L 04/07/17 04:12 Total Bilirubin 0.40 mg/dL (0.1-1.2) 04/05/17 18:28 AST 11 units/L (5-40) 04/05/17 18:28 ALT 7 units/L (7-56) 04/05/17 18:28 Alkaline Phosphatase 49 units/L (35-129) 04/05/17 18:28 C-Reactive Protein 5.50 mg/dL (0.00-1.30) H 04/07/17 04:12 Total Protein 6.6 g/dL (6.3-8.2) 04/05/17 18:28 Albumin 3.5 g/dL (3.9-5) L 04/05/17 18:28 Albumin/Globulin Ratio 1.1 % 04/05/17 18:28 Fluid Type Synovial 04/06/17 Unknown Fluid Color Red 04/06/17 Unknown Fluid Appearance Cloudy 04/06/17 Unknown Fluid WBC 84692 /mm3 04/06/17 Unknown Fluid RBC 410792 /mm3 04/06/17 Unknown Fluid Seg Neutrophils 96.0 % 04/06/17 Unknown Fluid Lymphocytes 1 % 04/06/17 Unknown Fluid Reactive Lymphs 0 % 04/06/17 Unknown Fluid Monocytes 3.0 % 04/06/17 Unknown Fluid Eosinophils 0 % 04/06/17 Unknown Fluid Basophils 0 % 04/06/17 Unknown Fluid Comment Diff performed 04/06/17 Unknown
--- NOTE | 2017-04-07 15:07 | Event Note ---
Date: 04/07/17 Pt awake and alert without specific complaint at present. Pt s/p IVC filter placement prior to orthopedic procedure. Right groin bandage, clean dry and in place. This can be removed in the next 24- 48hrs. Pt started back on Eliquis eariler today. Pt to f/u in our office in the next ~2wks to be eval'd for possible elective filter removal within the next 3 months.
[2017-04-07] MEDS ORDERED: VISTARIL PO SCH (22:00)
[2017-04-07] MEDS ORDERED: DESYREL PO SCH (22:00)
[2017-04-08] MEDS: UNASYN/NS 3 GM/100 ML 3 GM/100 ML BAG IV SCH ×3 (01:10→10:12)
[2017-04-08] MEDS: MORPHINE IV PRN (01:18)
[2017-04-08] MEDS: VANCOMYCIN 1,250 MG in NACL 0.9% 250ML 250 ML IV SCH (06:13)
[2017-04-08 06:43] LABS: Hematocrit 31.5 % (35.5-45.6); Hemoglobin 10.6 gm/dl (11.8-15.2); Mean Corpuscular HGB Conc 34 % (32-34); Mean Corpuscular Hemoglobin 32 pg (28-32); Mean Corpuscular Volume 94 fl (84-94); Platelet Count 272 K/mm3 (140-440); Red Blood Count 3.35 M/mm3 (3.65-5.03); Red Cell Distribution Width 14.7 % (13.2-15.2)
[2017-04-08 07:35] LABS: BUN/Creatinine Ratio 18; Blood Urea Nitrogen 7 mg/dL (9-20); Calcium 7.9 mg/dL (8.4-10.2); Hemolysis Index 1
--- NOTE | 2017-04-08 09:26 | Discharge Summary ---
Providers - Providers Date of Admission: 04/05/17 14:27 Attending physician: PATI YAÑEZ MD 04/05/17 15:51 Consult to Physician [CONS] Routine Consulting Provider: AICHA CRISTINA Reason For Exam: DVt Place consult to:: Patrick Notified:: yes Time called:: 17:10 Comment:: consult already completed 04/05/17 16:56 Consult to Physician [CONS] Routine Consulting Provider: MONICA TAYLOR Reason For Exam: Septic arthritis Place consult to:: Flavio Notified:: yes Comment:: Dr Taylor have seen patient already. per Rn Hansa 04/06/17 07:48 Consult to Physician [CONS] Routine Consulting Provider: AGNES MONTES Reason For Exam: SEPTIC KNEE Place consult to:: Dany Notified:: yes Time called:: 17:00 Comment:: Dr Saenz states that she saw this patient already 04/06/17 12:38 Consult to Physician [CONS] Routine Consulting Provider: ROSAURA COLLAZO Reason For Exam: HISPTORy OF dvt Place consult to:: David Notified:: yes Time called:: 17:08 Comment:: DR Collazo And Tracee already aware 04/06/17 12:40 Consult to Physician [CONS] Urgent Consulting Provider: ANNABELLA BOND Reason For Exam: prosthetic joint infection Notified:: nurse 04/06/17 12:44 Consult to Case Management [CONS] Routine Services Needed at Discharge: Home Health Services DME Equipment Station Repairer Physical Therapy Notified:: yes Phone number called:: [phone] Comment:: Tonya is aware of this order Additional Physician Instructions: also follow ID recommendations for Antibiotics 04/06/17 14:36 Consult to Case Management [CONS] Stat Services Needed at Discharge: Other Notified:: telephone betting clerk Additional Physician Instructions: [facility] Agnes Saenz MD M [phone] O [phone] OUTPATIENT PARENTERAL ANTIBIOTIC THERAPY ORDERS Diagnoses: 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 Please fax results to [phone] and call [phone] for critical lab results. Agnes Saenz Date: 04/06/17 Consult to PICC Line RN [CONS] Routine Reason For Exam: iv abx for 6 weeks Type Line:: PICC 04/07/17 16:05 Physical Therapy Evaluation and Treat [CONS] Routine Comment: Reason For Exam: right knee I & D Weight bearing status?: Full wt bearing Assistive devices?: walker Primary care physician: VI ROBERT MD Hospitalization Reason for admission: cellulitis Condition: Stable Hospital course: Patient is a 76 y/o male being admitted as a direct admit for Septic Knee Joint( Infected Prosthetic) - for wash out/TKA today by Dr Gauthier.Patient has recurrent DVT's Requring placement of IVC filter on admission by Dr Cristina. Post IVC filter patient doing well. No fever chills etc. No Sob. No chest pain etc. Patient on Lifelong anticoagulation with Xarelto for time being. Patient proceeded to undergo washout of the knee and was treated with vancomycin and Zosyn aspirate had gone streptococcal agalactiae in the office. Patient was seen by infectious disease and vascular surgery as mentioned IVC filter had been placed earlier patient was started on Eliquis eariler today. End Xarelto discontinued. He is to follow with vascular surgery in 2 weeks and also with infectious disease follow-up with vascular we'll ensure that in 3 months that filter is removed. Discharge diagnosis (1) Streptococcus agalactiae Septic arthritis (2) HLD (hyperlipidemia) (3) Anticoagulant long-term use Now S/P IVC filter placement (4) BPH (benign prostatic hyperplasia) (5) DVT, lower extremity, recurrent (6) anemia Disposition: DC/TX-06 HOME [facility] Time spent for discharge: 35 mins Core Measure Documentation - Palliative Care Palliative Care/ Comfort Measures: Not Applicable - Core Measures Any of the following diagnoses?: none - VTE Discharge Requirements Deep Vein Thrombosis/Pulmonary Embolism Present on Admission: No Exam - Physical Exam Narrative exam: VITAL SIGNS: Reviewed. GENERAL: The patient appeared well nourished and normally developed. Vital signs as documented. HEAD: No signs of head trauma. EYES: Pupils are equal. Extraocular motions intact. EARS: Hearing grossly intact. MOUTH: Oropharynx is normal. NECK: No adenopathy, no JVD. CHEST: Chest with clear breath sounds bilaterally. No wheezes, rales, or rhonchi. CARDIAC: Regular rate and rhythm. S1 and S2, without murmurs, gallops, or rubs. VASCULAR: No Edema. Peripheral pulses normal and equal in all extremities. ABDOMEN: Soft, without detectable tenderness. No sign of distention. No rebound or guarding, and no masses palpated. Bowel Sounds normal. MUSCULOSKELETAL: Good range of motion of all major joints. Except right lower extremity with knee immobilizer in place. Wound is not visualized by me. Extremities without clubbing, cyanosis or edema. NEUROLOGIC EXAM: Alert and oriented x 3. No focal sensory or strength deficits. Speech normal. Follows commands. PSYCHIATRIC: Mood normal. SKIN: No rash or lesions. - Constitutional Vitals: Temp Pulse Resp BP Pulse Ox 99.1 F 97 H 20 120/62 95 04/08/17 07:08 04/08/17 07:09 04/08/17 07:08 04/08/17 07:08 04/08/17 07:09 Plan Activity: advance as tolerated, fall precautions Weight Bearing Status: Weight Bear as Tolerated Diet: low cholesterol Special Instructions: record daily weights, record daily BP diary, physical therapy, occupational therapy, home health RN Follow up with: VI ROBERT MD [Primary Care Provider] - 7 Days MONICA TAYLOR MD [Staff Physician] - 7 Days AICHA CRISTINA DO [Staff Physician] - 04/21/17 AGNES MONTES MD [Staff Physician] - 7 Days Prescriptions: Apixaban [Eliquis] 5 mg PO Q12HR #60 tablet cefTRIAXone/NS 2 GM/100 ML [Rocephin/Ns 2 gm/100 ml] 2 gm IV Q24HR 45 Days piggyback HYDROcodone/APAP 5-325 [Dix 5-325 mg TAB] 1 each PO Q6HR PRN #14 tablet PRN Reason: Pain
[2017-04-08] MEDS: TRICOR PO SCH (10:13)
[2017-04-08] MEDS: PEPCID PO SCH (10:13)
[2017-04-08] MEDS: FLOMAX PO SCH (10:13)
[2017-04-08] MEDS: ELIQUIS PO SCH (10:13)
[2017-04-08 16:10] VITALS: BP 147/77
[2017-04-09] MEDS ORDERED: TRICOR PO SCH (10:00)
--- NOTE | 2017-04-20 17:43 | Operative Report ---
PREOPERATIVE DIAGNOSES: Periprosthetic joint infection status post acute hematogenous infection from gallbladder surgery. POSTOPERATIVE DIAGNOSES: Periprosthetic right knee joint infection, status post total hip arthroplasty in situ. PROCEDURES PERFORMED: Irrigation and debridement of the right knee joint with polyethylene exchange. SURGEON: García Muniz M.D. MOTION PICTURE PROJECTIONIST: Tucker Lindquist, operative tech. BRIEF HISTORY: The patient had a total knee replacement done 7-8 years ago. Had a gallbladder surgery and ended up having increased pain and swelling on the right knee and was seen by Charles and Dr. Zuluaga's staff and had knee aspiration, which had suspicion of infection. Had infection and was sent to co for evaluation. The patient was diagnosed with a periprosthetic joint infection. After reviewing the culture analysis, different treatment options were discussed with the patient. Nonoperative and operative plan of treatment was discussed and the patient elected for surgical intervention as the knee pain and symptoms were significant enough and after his medical clearance and due diligence, he elected for surgical intervention. The patient refused for removal of the prosthesis as such. She opted for debridement and retention of the prosthesis with polyethylene exchange as the first line of treatment. Risks and benefits discussed, informed consent obtained, brought to the hospital for the above procedure. No guarantee expressed, possibility of 2-stage revision in the future discussed, the patient and family member are aware of it. DETAILS OF THE OPERATIVE REPORT: The patient was taken to the operating room. After smooth general endotracheal anesthesia, all the bony prominences were carefully padded, placed supine on the operating table. Thigh tourniquet placed. Right knee and right lower extremity prepped and draped in the sterile fashion. Esmarch was not used. The patient was admitted a day before for her ID treatment and antibiotic treatment. Infectious Disease was consulted as well. The patient was given antibiotic and was already on scheduled antibiotics. The patient's right knee, right lower extremity prepped and draped in the sterile fashion. The tourniquet inflated to 300 mmHg. Longitudinal incision made over the anterior aspect of the knee, exposing the extensor mechanism. The previous Ethibond sutures were identified and were removed as best possible. Arthrotomy was performed, patella displaced laterally, gross finding revealed significant acute inflammation and tissues were sent for tissue culture and tissue biopsy. Culture swabs were also taken. The sweep synovectomy was performed as thoroughly as possible. Polyethylene liner was removed. Thorough washing was performed. Anterior stabilized insert and a new stabilized insert was inserted after thorough washing was performed with 6 liters of antibiotic-soaked normal saline followed by normal saline and a thorough debridement was performed. Loose synovial tissue and floating tissues were removed. Extensive debridement was performed. Real liner was then inserted in place and ____ got a better stability. The patient had a cruciate retaining prosthesis and a cruciate retaining insert with the stabilized insert that was inserted for better stability. The knee was moved through range of motion and found to be extremely stable. After thorough washing irrigation and debridement, tourniquet released. Hemostasis achieved. No active bleeder as such. Arthrotomy closed with a #2 PDS suture and subcutaneous tissue was closed with #0 and 2-0 PDS sutures. Skin was closed with Monocryl. Aquacel dressing was done. [place] wrap applied. The patient tolerated the procedure well. Knee immobilizer applied. The patient tolerated the procedure well, shifted to recovery room in stable condition. Sponge and needle count was correct. JOB# [id number] TEZ/DAR
== END 2017-04-08 17:20 | disposition home health service (06) | DRG 486 ==
LOC: CATHLABREC 11:15 → 3A 14:27 → 3B-SURG 18:05
PROVIDERS: ADMIT Internal Medicine; ATTEND Internal Medicine
PROC: 06H03DZ Insertion of Intraluminal Device into Inferior Vena Cava, Percutaneous Approach (ICD-10-PCS; principal; 2017-04-05)
PROC: 0SBC0ZZ Excision of Right Knee Joint, Open Approach (ICD-10-PCS; 2017-04-05)
PROC: 02HV33Z Insertion of Infusion Device into Superior Vena Cava, Percutaneous Approach (ICD-10-PCS; 2017-04-07)
DX: T84.53XA Infection and inflammatory reaction due to internal right knee prosthesis, initial encounter (principal); M00.261 Other streptococcal arthritis, right knee; I82.409 Acute embolism and thrombosis of unspecified deep veins of unspecified lower extremity; Y83.8 Other surgical procedures as the cause of abnormal reaction of the patient, or of later complication, without mention of misadventure at the time of the procedure; Y92.9 Unspecified place or not applicable; N40.0 Benign prostatic hyperplasia without lower urinary tract symptoms; D64.9 Anemia, unspecified; F17.200 Nicotine dependence, unspecified, uncomplicated; E78.5 Hyperlipidemia, unspecified; B95.1 Streptococcus, group B, as the cause of diseases classified elsewhere; Z96.659 Presence of unspecified artificial knee joint; Z82.49 Family history of ischemic heart disease and other diseases of the circulatory system; Z79.01 Long term (current) use of anticoagulants; Z86.718 Personal history of other venous thrombosis and embolism; Z90.49 Acquired absence of other specified parts of digestive tract; Z83.3 Family history of diabetes mellitus
CPT/HCPCS: 36415; 37191; 71010; 80048; 80053; 82962; 83036; 85014; 85018; 85025; 85027; 85610; 85730; 86140; 87075; 87102; 87116; 88305; 89051; A4217; C1776; C1880; G8978-GP; G8979-GP; J0295; J0690; J1170; J1644; J1885; J2250; J2270; J3010; J3370; J7030; J7040; J7050; Q0177; Q9967